=== PATIENT | female | born 1940 | race Hispanic/Latino ===

== ENCOUNTER 2018-05-22 21:03 | Emergency (ER) | payer MEDICARE, MEDICAID ==
[~2018-05-22] VITALS: Ht 165.1 cm; Wt 80.0 kg
[~2018-05-22 21:03] MED LIST: AMARYL2 MG PO; AMLODIPINE BESYL5 MG PO; AMOXICILLIN500 MG PO; ASPIRIN EC81 MG PO; ATENOL/CHLOR1 TA2 PO; ATENOLOL25 MG PO; B-COMPLEX1 CAP PO; CATAPRES0.1 MG PO; CATAPRESS PO; CIPROFLOXACIN500 M1 PO; CIPROFLOXACN500 MG PO; CLONAZEPAM1 MG PO; CLONIDINE0.1 MG PO; CYMBALTA30 MG PO; DICLOFENAC100 M1 PO; DONEPEZIL5 MG PO; DUONEB IN; GLIMEPIRIDE4 MG PO; GLUCOS1 PO; HYDROCODONE/ACE1 TA1 PO; INVOKANA100 MG PO; JANUMET PO; LISINOP/HCTZ1 TAB PO; MEDDOSEPAK PO; METRONIDAZOL500 MG PO; METRONIDAZOLE500 MG PO; MULTI VIT PO; MULTIVITAM10 OR; NEBULIZE2; NEURONTIN300 MG PO; NORVASC10 MG PO; NORVASC5 M1 PO; NOVOLIN 70/30 SC; NOVOLOG MIX SC; PANTOPRAZOLE SO40 M1 PO; PRAVASTATIN SOD20 MG PO; PRILOSEC20 MG PO; ROBITUSSIN AC10 ML PO; SIMVASTATIN40 MG PO; TRAMADOL HCL50 MG PO; TYLENOL EXT500 MG/RR PO; VALTAREN TOP; VICTOZA18 MG/3 ML SC; ZESTRIL40 MG PO; ZOFRAN ODT4 MG SL; [UNRECOGNIZED DRUG - OTHER] PO
[2018-05-22 21:54] LABS: IMMATURE GRANULOCYTES 0.4 % (0.0-1.0); MEAN CELL VOLUME 88.4 fL CALC (80.0-100.0); MEAN CORPUSCULAR HGB 30.9 pG CALC (26.0-32.0); MEAN CORPUSCULAR HGB CONC 34.9 g/L CALC (32.0-36.0); NEUT# 13.04 thou/uL (2.00-7.15); RED BLOOD COUNT 5.54 mill/uL (4.20-5.60); RED CELL DISTRI WIDTH 11.9 % (11.5-15.5)
[2018-05-22 21:57] LABS: HEMOGLOBIN 17.1 g/dl (12.0-16.0)
[2018-05-22 22:06] LABS: ALBUMIN 4.5 g/dL (3.2-5.0); ALKALINE PHOSPHATASE 82 u/l (38-126); AMYLASE 53 u/l (30-110); ANION GAP 17 (6-22 (CALC)); BILIRUBIN, TOTAL 0.7 mg/dL (0.0-1.4); BUN 18 mg/dL (8-23); BUN/CREATININE RATIO 27 (12-20 (CALC)); CARBON DIOXIDE 25 mmol/l (22-30); CHLORIDE 101 mmol/l (95-108); CREATININE 0.7 mg/dL (0.5-1.0); GFR > 60 ML/MIN (>=60 (CALC)); GFR FOR AFR.AMER. > 60 ML/MIN (>=60 (CALC)); LIPASE 75 u/l (23-300); POTASSIUM 3.8 mmol/l (3.5-5.1); SGOT/AST 17 u/l (9-36); SGPT/ALT 27 u/l (11-66); SODIUM 139 mmol/l (137-146)
[2018-05-22 23:37] LABS: URINE BILIRUBIN - DIPSTICK NEGATIVE (NEGATIVE); URINE BLOOD DIPSTICK NEGATIVE (NEGATIVE); URINE CLARITY CLEAR; URINE COLOR YELLOW; URINE GLUCOSE - DIPSTICK >=1000 mg/dL (NEGATIVE); URINE KETONE 15 mg/dL (NEGATIVE); URINE LEUK ESTERASE NEGATIVE (NEGATIVE); URINE NITRITE - DIPSTICK NEGATIVE (Negative); URINE PH 6.5 (4.5-8.0); URINE PROTEIN - DIPSTICK NEGATIVE (NEG-TRACE); URINE SPECIFIC GRAVITY <=1.005; URINE UROBILINOGEN - DIPSTICK 0.2 E.U./dL (0.2)
[2018-05-23 02:20] VITALS: BP 144/74
== END 2018-05-23 02:26 | disposition short-term general hospital (02) ==
LOC: ED 21:03
PROVIDERS: Family Medicine
DX: K35.80 Unspecified acute appendicitis (principal); R50.9 Fever, unspecified; R11.10 Vomiting, unspecified

== ENCOUNTER → 2018-08-24 | Outpatient (REF) | payer MEDICARE, MEDICAID ==
[2018-08-24 09:57] LABS: HEMATOCRIT 45.7 % (37.0-47.0); HEMOGLOBIN 15.2 g/dl (12.0-16.0); MEAN CORPUSCULAR HGB 30.6 pG CALC (26.0-32.0); MEAN CORPUSCULAR HGB CONC 33.3 g/L CALC (32.0-36.0); RED BLOOD COUNT 4.97 mill/uL (4.20-5.60)
[2018-08-24 10:11] LABS: URINE BILIRUBIN - DIPSTICK NEGATIVE (NEGATIVE); URINE BLOOD DIPSTICK NEGATIVE (NEGATIVE); URINE COLOR YELLOW; URINE GLUCOSE - DIPSTICK >=1000 mg/dL (NEGATIVE); URINE KETONE NEGATIVE (NEGATIVE); URINE LEUK ESTERASE NEGATIVE (NEGATIVE); URINE NITRITE - DIPSTICK NEGATIVE (Negative); URINE PROTEIN - DIPSTICK NEGATIVE (NEG-TRACE); URINE UROBILINOGEN - DIPSTICK 0.2 E.U./dL (0.2)
[2018-08-24 10:12] LABS: URINE CLARITY CLEAR
[2018-08-24 10:18] LABS: ALBUMIN 3.9 g/dL (3.2-5.0); ALKALINE PHOSPHATASE 67 u/l (38-126); ANION GAP 15 (6-22 (CALC)); BILIRUBIN, TOTAL 0.6 mg/dL (0.0-1.4); BUN 20 mg/dL (8-23); BUN/CREATININE RATIO 27 (12-20 (CALC)); CARBON DIOXIDE 26 mmol/l (22-30); CHLORIDE 105 mmol/l (95-108); CREATININE 0.7 mg/dL (0.5-1.0); GFR > 60 ML/MIN (>=60 (CALC)); GFR FOR AFR.AMER. > 60 ML/MIN (>=60 (CALC)); POTASSIUM 4.4 mmol/l (3.5-5.1); SGOT/AST 17 u/l (9-36); SODIUM 141 mmol/l (137-146)
[2018-08-24 10:49] LABS: TSH, 3RD GENERATION 1.39 uIU/mL (0.47 - 4.68)
== END | disposition home or self-care (01) ==
LOC: CT 08:47
PROVIDERS: Nurse Practitioner Adult Health; ATTEND Nurse Practitioner Family
DX: R10.9 Unspecified abdominal pain (principal); E11.40 Type 2 diabetes mellitus with diabetic neuropathy, unspecified; E78.49 Other hyperlipidemia; R10.30 Lower abdominal pain, unspecified; Z90.49 Acquired absence of other specified parts of digestive tract; K57.30 Diverticulosis of large intestine without perforation or abscess without bleeding

== ENCOUNTER 2021-10-16 10:27 | Emergency (ER) | payer MEDICARE, MEDICAID ==
[~2021-10-16] VITALS: Ht 165.1 cm; Wt 81.0 kg
[~2021-10-16 10:27] MED LIST changes: +GABAPENTIN100 MG PO; +JARDIANCE25 MG PO; +MECLIZINE25 MG PO; +MELOXICAM7.5 MG PO; +METOPROL TAR25 MG PO; +MONTELUKAST SOD10 MG PO
[2021-10-16 10:58] LABS: URINE BILIRUBIN - DIPSTICK NEGATIVE (NEGATIVE); URINE BLOOD DIPSTICK NEGATIVE (NEGATIVE); URINE COLOR YELLOW; URINE GLUCOSE - DIPSTICK >=1000 mg/dL (NEGATIVE); URINE KETONE NEGATIVE (NEGATIVE); URINE LEUK ESTERASE NEGATIVE (NEGATIVE); URINE PROTEIN - DIPSTICK NEGATIVE (NEG-TRACE); URINE SPECIFIC GRAVITY <=1.005; URINE UROBILINOGEN - DIPSTICK 0.2 E.U./dL (0.2)
[2021-10-16 10:59] LABS: HEMATOCRIT 45.7 % (37.0-47.0); HEMOGLOBIN 14.8 g/dl (12.0-16.0); IMMATURE GRANULOCYTES 0.3 % (0.0-5.0); MEAN CELL VOLUME 94.6 fL CALC (80.0-100.0); MEAN CORPUSCULAR HGB 30.6 pG CALC (26.0-32.0); MEAN CORPUSCULAR HGB CONC 32.4 g/dL CAL (32.0-36.0); NEUT# 6.23 thou/uL (2.00-7.15); RED BLOOD COUNT 4.83 mill/uL (4.20-5.60); RED CELL DISTRI WIDTH 13.2 % (11.5-15.5)
[2021-10-16 11:00] LABS: URINE NITRITE - DIPSTICK POSITIVE (Negative)
[2021-10-16 11:01] LABS: URINE BACTERIA FEW hpf; URINE EPITHELIAL CELLS FEW EPI/hpf (0-FEW)
[2021-10-16 11:14] LABS: ALBUMIN 3.6 g/dL (3.2-5.0); ALKALINE PHOSPHATASE 58 u/l (38-126); ANION GAP 11 (6-22 (CALC)); BILIRUBIN, TOTAL 0.7 mg/dL (0.0-1.4); BUN 25 mg/dL (8-23); BUN/CREATININE RATIO 27 (12-20 (CALC)); CARBON DIOXIDE 27 mmol/l (22-30); CHLORIDE 105 mmol/l (95-108); CREATININE 0.9 mg/dL (0.5-1.0); GFR 60 ML/MIN (>=60 (CALC)); GFR FOR AFR.AMER. > 60 ML/MIN (>=60 (CALC)); LIPASE 53 u/l (23-300); SGOT/AST 24 u/l (9-36); SODIUM 138 mmol/l (137-146); TOTAL PROTEIN 7.3 g/dL (6.3-8.2)
[2021-10-16] MEDS ORDERED: METFORMIN500 M2 PO (11:17)
[2021-10-16 14:38] VITALS: BP 148/70
[2021-10-16] MEDS ORDERED: HYOSCYAMINE0.125 M3 PO (14:38)
[2021-10-16] MEDS ORDERED: NITROFURANTN100 M2 PO (14:38)
[2021-10-16] MEDS ORDERED: ZOFRAN4 M1 PO (14:38)
[2021-10-16] MEDS ORDERED: CITRATE OF MEGNESIA PO (14:38)
== END 2021-10-16 15:00 | disposition home or self-care (01) ==
LOC: ED 10:27
PROVIDERS: Family Medicine
DX: R10.84 Generalized abdominal pain (principal); N39.0 Urinary tract infection, site not specified; E11.9 Type 2 diabetes mellitus without complications; I10 Essential (primary) hypertension; B96.20 Unspecified Escherichia coli [E. coli] as the cause of diseases classified elsewhere; Z16.12 Extended spectrum beta lactamase (ESBL) resistance; Z95.0 Presence of cardiac pacemaker; Z90.49 Acquired absence of other specified parts of digestive tract; Z79.4 Long term (current) use of insulin; Z79.84 Long term (current) use of oral hypoglycemic drugs
CPT/HCPCS: Q9967

== ENCOUNTER 2022-07-16 15:54 | Emergency (ER) | payer MEDICARE, MEDICAID ==
[~2022-07-16] VITALS: Ht 165.1 cm; Wt 74.6 kg
[2022-07-16] VITALS (7 sets, daily range): BP systolic 128–145; BP diastolic 58–69
[~2022-07-16 15:54] MED LIST changes: +CITRATE OF MEGNESIA PO; +HYOSCYAMINE0.125 M3 PO; +METFORMIN500 M2 PO; +NITROFURANTN100 M2 PO; +ZOFRAN4 M1 PO
[2022-07-16 16:17] LABS: HEMATOCRIT 46.7 % (37.0-47.0); HEMOGLOBIN 15.3 g/dl (12.0-16.0); IMMATURE GRANULOCYTES 0.2 % (0.0-5.0); MEAN CELL VOLUME 92.5 fL CALC (80.0-100.0); MEAN CORPUSCULAR HGB 30.3 pG CALC (26.0-32.0); MEAN CORPUSCULAR HGB CONC 32.8 g/dL CAL (32.0-36.0); NEUT# 7.95 thou/uL (2.00-7.15); RED BLOOD COUNT 5.05 mill/uL (4.20-5.60); RED CELL DISTRI WIDTH 12.9 % (11.5-15.5)
[2022-07-16 16:25] LABS: GFR FOR AFR.AMER. > 60 ML/MIN (>=60 (CALC)); GFR OTHER RACES > 60 ML/MIN (>=60 (CALC))
[2022-07-16] MEDS ORDERED: ALPRAZOLAM0.25 MG PO (16:32)
[2022-07-16] MEDS ORDERED: NORVASC5 M1 PO (16:33)
[2022-07-16 16:34] LABS: ALKALINE PHOSPHATASE 67 u/l (38-126); ANION GAP 12 (6-22 (CALC)); BUN 17 mg/dL (8-23); BUN/CREATININE RATIO 25 (12-20 (CALC)); CARBON DIOXIDE 22 mmol/l (22-30); CHLORIDE 109 mmol/l (95-108); CREATININE 0.7 mg/dL (0.5-1.0); GFR FOR AFR.AMER. > 60 ML/MIN (>=60 (CALC)); GFR OTHER RACES > 60 ML/MIN (>=60 (CALC)); LIPASE 39 u/l (23-300); POTASSIUM 3.7 mmol/l (3.5-5.1); SGOT/AST 21 u/l (9-36); SODIUM 140 mmol/l (137-146); TOTAL PROTEIN 7.6 g/dL (6.3-8.2)
[2022-07-16] MEDS ORDERED: BUPROPION150 M3 PO (16:34)
[2022-07-16] MEDS ORDERED: ELIQUIS5 MG PO (16:34)
[2022-07-16] MEDS ORDERED: FLUOXETINE10 M2 PO (16:35)
[2022-07-16] MEDS ORDERED: ALL DAY10 MG PO (16:35)
[2022-07-16] MEDS ORDERED: LISINOPRIL10 MG PO (16:36)
[2022-07-16] MEDS ORDERED: METOPROL TAR25 MG PO (16:36)
[2022-07-16 16:37] LABS: BILIRUBIN, TOTAL 0.8 mg/dL (0.0-1.4)
[2022-07-16] MEDS ORDERED: ASMANEX HFA50 MCG (16:37)
[2022-07-16 17:31] LABS: URINE BILIRUBIN - DIPSTICK NEGATIVE (NEGATIVE); URINE BLOOD DIPSTICK TRACE-INTACT (NEGATIVE); URINE COLOR YELLOW; URINE GLUCOSE - DIPSTICK >=1000 mg/dL (NEGATIVE); URINE KETONE NEGATIVE (NEGATIVE); URINE LEUK ESTERASE TRACE (NEGATIVE); URINE PH 5.5 (4.5-8.0); URINE PROTEIN - DIPSTICK NEGATIVE (NEG-TRACE); URINE UROBILINOGEN - DIPSTICK 0.2 E.U./dL (0.2)
[2022-07-16 17:32] LABS: URINE NITRITE - DIPSTICK POSITIVE (Negative)
[2022-07-16 17:40] LABS: URINE BACTERIA MODERATE hpf; URINE SQUAMOUS EPITHELIAL CELL FEW EPI/hpf (0-FEW)
[2022-07-16] MEDS ORDERED: NITROFURANTN100 M2 PO (17:57)
== END 2022-07-16 18:20 | disposition home or self-care (01) ==
LOC: ED 15:54
PROVIDERS: Family Medicine
DX: R10.13 Epigastric pain (principal); N39.0 Urinary tract infection, site not specified; I10 Essential (primary) hypertension; E11.9 Type 2 diabetes mellitus without complications; I48.91 Unspecified atrial fibrillation; E78.5 Hyperlipidemia, unspecified; K21.9 Gastro-esophageal reflux disease without esophagitis; F03.90 Unspecified dementia, unspecified severity, without behavioral disturbance, psychotic disturbance, mood disturbance, and anxiety; I25.2 Old myocardial infarction; Z87.11 Personal history of peptic ulcer disease; Z95.0 Presence of cardiac pacemaker; Z86.73 Personal history of transient ischemic attack (TIA), and cerebral infarction without residual deficits; Z79.84 Long term (current) use of oral hypoglycemic drugs; B96.20 Unspecified Escherichia coli [E. coli] as the cause of diseases classified elsewhere; Z16.12 Extended spectrum beta lactamase (ESBL) resistance
CPT/HCPCS: Q9967

== ENCOUNTER 2023-01-28 17:36 | Emergency (ER) | payer MEDICARE, MEDICAID ==
[~2023-01-28] VITALS: Ht 165.1 cm; Wt 68.0 kg
[~2023-01-28 17:36] MED LIST changes: +ALL DAY10 MG PO; +ALPRAZOLAM0.25 MG PO; +ASMANEX HFA50 MCG; +BUPROPION150 M3 PO; +ELIQUIS5 MG PO; +FLUOXETINE10 M2 PO; +LISINOPRIL10 MG PO
[2023-01-28 18:16] LABS: BASO% 0.2 % (0-3); EOS% 2.1 % (0-8); HEMATOCRIT 45.5 % (37.0-47.0); HEMOGLOBIN 14.7 g/dl (12.0-16.0); IMMATURE GRANULOCYTES 0.3 % (0.0-5.0); LYMPH% 41.1 % (15-41); MEAN CELL VOLUME 96.8 fL CALC (80.0-100.0); MEAN CORPUSCULAR HGB 31.3 pG CALC (26.0-32.0); MEAN CORPUSCULAR HGB CONC 32.3 g/dL CAL (32.0-36.0); MONO% 11.6 % (2-13); NEUT# 3.87 thou/uL (2.00-7.15); NEUT% 44.7 % (42-76); RED BLOOD COUNT 4.7 mill/uL (4.20-5.60); RED CELL DISTRI WIDTH 12.2 % (11.5-15.5)
[2023-01-28 18:24] LABS: ALBUMIN 3.9 g/dL (3.2-5.0); ALKALINE PHOSPHATASE 48 u/l (38-126); ANION GAP 12 (6-22 (CALC)); BUN 22 mg/dL (8-23); BUN/CREATININE RATIO 28 (12-20 (CALC)); CARBON DIOXIDE 26 mmol/l (22-30); CHLORIDE 103 mmol/l (95-108); CREATININE 0.8 mg/dL (0.5-1.0); GFR FOR AFR.AMER. > 60 ML/MIN (>=60 (CALC)); GFR OTHER RACES > 60 ML/MIN (>=60 (CALC)); POTASSIUM 4.7 mmol/l (3.5-5.1); SGOT/AST 25 u/l (9-36); SODIUM 135 mmol/l (137-146); TOTAL PROTEIN 7.1 g/dL (6.3-8.2)
[2023-01-28 18:28] LABS: BILIRUBIN, TOTAL 0.2 mg/dL (0.02-1.3)
[2023-01-28] MEDS ORDERED: NOVOLIN 70/30 INNLT SC (18:47)
[2023-01-28] MEDS ORDERED: NOVOLIN 70/30 F1 INJ SC (18:47)
[2023-01-28] MEDS ORDERED: FLUTICASON50 MCG/ACT (18:50)
[2023-01-28] MEDS ORDERED: DIVALPROEX SOD250 MG PO (18:52)
[2023-01-28] MEDS ORDERED: SEROQUEL25 MG PO (18:53)
[2023-01-28 21:31] VITALS: BP 161/72
== END 2023-01-28 21:10 | disposition left against medical advice (07) ==
LOC: ED 17:36
PROVIDERS: Family Medicine
DX: I63.512 Cerebral infarction due to unspecified occlusion or stenosis of left middle cerebral artery (principal); R47.81 Slurred speech; R29.701 NIHSS score 1; R29.810 Facial weakness; I10 Essential (primary) hypertension; E11.9 Type 2 diabetes mellitus without complications; F01.50 Vascular dementia, unspecified severity, without behavioral disturbance, psychotic disturbance, mood disturbance, and anxiety; H54.62 Unqualified visual loss, left eye, normal vision right eye; I25.2 Old myocardial infarction; Z53.29 Procedure and treatment not carried out because of patient's decision for other reasons; Z86.73 Personal history of transient ischemic attack (TIA), and cerebral infarction without residual deficits; Z79.84 Long term (current) use of oral hypoglycemic drugs; Z79.4 Long term (current) use of insulin; Z79.01 Long term (current) use of anticoagulants; Z95.0 Presence of cardiac pacemaker
CPT/HCPCS: Q9967

== ENCOUNTER 2023-07-02 19:02 | Emergency (ER) | payer MEDICARE, MEDICAID ==
[~2023-07-02] VITALS: Ht 165.1 cm; Wt 66.8 kg
[~2023-07-02 19:02] MED LIST changes: +DIVALPROEX SOD250 MG PO; +FLUTICASON50 MCG/ACT; +NOVOLIN 70/30 F1 INJ SC; +NOVOLIN 70/30 INNLT SC; +SEROQUEL25 MG PO
[2023-07-02 20:12] LABS: BASO% 0.4 % (0-3); EOS% 1.8 % (0-8); HEMATOCRIT 42.9 % (37.0-47.0); HEMOGLOBIN 14.5 g/dl (12.0-16.0); IMMATURE GRANULOCYTES 0.1 % (0.0-5.0); LYMPH% 42.8 % (15-41); MEAN CELL VOLUME 95.1 fL CALC (80.0-100.0); MEAN CORPUSCULAR HGB 32.2 pG CALC (26.0-32.0); MEAN CORPUSCULAR HGB CONC 33.8 g/dL CAL (32.0-36.0); MONO% 11.2 % (2-13); NEUT# 3.1 thou/uL (2.00-7.15); NEUT% 43.7 % (42-76); RED BLOOD COUNT 4.51 mill/uL (4.20-5.60); RED CELL DISTRI WIDTH 12.8 % (11.5-15.5)
[2023-07-02 20:26] LABS: ALKALINE PHOSPHATASE 47 u/l (38-126); ANION GAP 14 (6-22 (CALC)); BUN 20 mg/dL (8-23); BUN/CREATININE RATIO 30 (12-20 (CALC)); CARBON DIOXIDE 23 mmol/l (22-30); CHLORIDE 105 mmol/l (95-108); CREATININE 0.6 mg/dL (0.5-1.0); GFR FOR AFR.AMER. > 60 ML/MIN (>=60 (CALC)); GFR OTHER RACES > 60 ML/MIN (>=60 (CALC)); POTASSIUM 4.3 mmol/l (3.5-5.1); SGOT/AST 27 u/l (9-36); SODIUM 138 mmol/l (137-146); TOTAL PROTEIN 7.1 g/dL (6.3-8.2)
[2023-07-02 20:27] LABS: BILIRUBIN, TOTAL 0.5 mg/dL (0.02-1.3)
[2023-07-02] MEDS ORDERED: FIORICET PO (21:50)
[2023-07-02 21:59] VITALS: BP 175/70
== END 2023-07-02 23:15 | disposition home or self-care (01) ==
LOC: ED 19:02
PROVIDERS: Emergency Medicine
DX: R51.9 Headache, unspecified (principal); I10 Essential (primary) hypertension; E11.9 Type 2 diabetes mellitus without complications; I25.2 Old myocardial infarction; F03.90 Unspecified dementia, unspecified severity, without behavioral disturbance, psychotic disturbance, mood disturbance, and anxiety; Z86.73 Personal history of transient ischemic attack (TIA), and cerebral infarction without residual deficits; Z79.4 Long term (current) use of insulin; Z20.822 Contact with and (suspected) exposure to COVID-19

== ENCOUNTER 2024-08-13 12:47 | Emergency (ER) | payer MEDICARE, MEDICAID ==
[2024-08-13] VITALS (12 sets, daily range): BP systolic 153–178; BP diastolic 72–91
[~2024-08-13] VITALS: Ht 162.6 cm; Wt 72.1 kg
[~2024-08-13 12:47] MED LIST changes: +BUSPAR10 MG PO; +CIPROFLOXACN250 M1 PO; +FIORICET PO; +FLUOXETINE HYDR20 MG PO; -FLUOXETINE10 M2 PO; +MUCINEX600 MG PO; +PAXLOVID PO; +PROTONIX40 M2 PO
[2024-08-13] MEDS ORDERED: traMADol HCL 50 MG/TAB PO ONE (13:05)
[2024-08-13] MEDS ORDERED: PERCOCET 5/325M1 TAB PO (14:58)
== END 2024-08-13 15:27 | disposition home or self-care (01) ==
LOC: ED 12:47
DX: S22.31XA Fracture of one rib, right side, initial encounter for closed fracture (principal); I10 Essential (primary) hypertension; E11.9 Type 2 diabetes mellitus without complications; F03.90 Unspecified dementia, unspecified severity, without behavioral disturbance, psychotic disturbance, mood disturbance, and anxiety; H54.7 Unspecified visual loss; W17.89XA Other fall from one level to another, initial encounter; Y93.E1 Activity, personal bathing and showering; Y92.002 Bathroom of unspecified non-institutional (private) residence as the place of occurrence of the external cause; Z79.4 Long term (current) use of insulin; Z79.84 Long term (current) use of oral hypoglycemic drugs; Z95.0 Presence of cardiac pacemaker

== ENCOUNTER 2024-11-30 10:01 | Observation (INO) | payer MEDICARE, MEDICAID ==
[2024-11-30] VITALS (33 sets, daily range): BP systolic 147–196; BP diastolic 59–155
[~2024-11-30] VITALS: Ht 162.6 cm; Wt 69.0 kg
[~2024-11-30 10:01] MED LIST changes: +PERCOCET 5/325M1 TAB PO
[2024-11-30] MEDS ORDERED: SODIUM CHLORIDE 0.9% 1,000 ML IV ONE ×2 (10:25→11:20)
[2024-11-30 10:38] LABS: BASO% 0.5 % (0-3); EOS% 1.6 % (0-8); HEMATOCRIT 47.7 % (37.0-47.0); HEMOGLOBIN 15.9 g/dl (12.0-16.0); IMMATURE GRANULOCYTES 0.1 % (0.0-5.0); LYMPH% 31.3 % (15-41); MEAN CELL VOLUME 95.4 fL CALC (80.0-100.0); MEAN CORPUSCULAR HGB 31.8 pG CALC (26.0-32.0); MEAN CORPUSCULAR HGB CONC 33.3 g/dL CAL (32.0-36.0); MONO% 5.8 % (2-13); NEUT# 5.33 thou/uL (2.00-7.15); NEUT% 60.7 % (42-76); RED CELL DISTRI WIDTH 12.4 % (11.5-15.5)
[2024-11-30 10:44] LABS: URINE BILIRUBIN - DIPSTICK Negative (NEGATIVE); URINE BLOOD DIPSTICK Negative (NEGATIVE); URINE GLUCOSE - DIPSTICK 100 mg/dL (NEGATIVE); URINE KETONE 15 mg/dL (NEGATIVE); URINE LEUK ESTERASE Negative (NEGATIVE); URINE NITRITE - DIPSTICK Negative (Negative); URINE PROTEIN - DIPSTICK 30 mg/dL (NEG-TRACE)
[2024-11-30 10:55] LABS: URINE COLOR Yellow
[2024-11-30] MEDS ORDERED: BUPROPION HCL150 MG PO (10:59)
[2024-11-30 11:02] LABS: URINE RBC 0-2 RBC/hpf (0-5); URINE WBC 0-2 WBC/hpf (0-5)
[2024-11-30 11:07] LABS: ALBUMIN 4.7 g/dL (3.2-5.0); ALKALINE PHOSPHATASE 87 u/l (38-126); ANION GAP 17 (6-22 (CALC)); BILIRUBIN, TOTAL 0.7 mg/dL (0.02-1.3); BUN 19 mg/dL (8-23); BUN/CREATININE RATIO 29 (12-20 (CALC)); CARBON DIOXIDE 25 mmol/l (22-30); CHLORIDE 103 mmol/l (95-108); CREATININE 0.6 mg/dL (0.5-1.0); ESTIMATED GFR 89 ML/MIN (>=90 (CALC)); POTASSIUM 3.8 mmol/l (3.5-5.1); SGOT/AST 30 u/l (9-36); SODIUM 141 mmol/l (137-146); TOTAL PROTEIN 8.5 g/dL (6.3-8.2)
[2024-11-30 11:07] LABS: URINE YEAST RARE hpf
[2024-11-30 11:08] LABS: URINE HYALINE CAST FEW lpf (NONE-RARE)
[2024-11-30 11:33] LABS: INTERNATIONAL NORMALIZED RATIO 1.1 RATIO (0.7-1.3)
[2024-11-30 11:36] LABS: PROTHROMBIN TIME 11.6 SECONDS (9.0-12.5)
[2024-11-30] MEDS ORDERED: OS-CAL 500500 M1 PO (11:42)
[2024-11-30] MEDS ORDERED: PIPERACILLIN Sodium-Tazobactam 3.375 GM in SODIUM CHLORIDE 0.9% 100 ML IV ONE (13:05)
[2024-11-30] MEDS ORDERED: LORazepam 2 MG/ML IV ONE (13:20)
[2024-11-30] MEDS ORDERED: HALOPERIDOL LACTATE 5 MG/ML SDV IV ONE (14:20)
[2024-11-30] MEDS ORDERED: DEXTROSE 5% / 0.9% NACL 1,000 ML IV PRN (18:35)
[2024-11-30] MEDS ORDERED: hydrALAZINE HCL 20 MG/ML VIAL(1 ML) IV SCH (18:40)
[2024-11-30] MEDS ORDERED: DEXTROSE 5% w/NACL 0.45 1,000 ML IV PRN (19:45)
[2024-11-30] MEDS ORDERED: ACETAMINOPHEN 325 MG/TAB PO PRN (20:05)
[2024-11-30] MEDS ORDERED: MAGNESIUM HYDROXIDE 30 ML UDC PO PRN (20:05)
[2024-11-30] MEDS ORDERED: SODIUM CHLORIDE 0.9% 1,000 ML IV PRN (20:05)
[2024-11-30] MEDS ORDERED: DEXTROSE 250 ML IV PRN (20:15)
[2024-11-30] MEDS ORDERED: ALPRAZolam 0.25 MG PO PRN (20:15)
[2024-11-30] MEDS ORDERED: VALPROATE SODIUM 250 MG/5 ML SYRUP PO SCH (21:00)
[2024-11-30] MEDS ORDERED: INSULIN LISPRO 100 UNITS/ML ML SC SCH (21:00)
[2024-11-30] MEDS ORDERED: APIXABAN BASE 5 MG TAB PO SCH (21:00)
[2024-11-30] MEDS ORDERED: QUEtiapine FUMERATE 25 MG/TAB PO SCH (21:00)
[2024-12-01] VITALS (7 sets, daily range): BP systolic 152–178; BP diastolic 63–82
[2024-12-01] MEDS ORDERED: FLUoxetine HCL 10 MG/CAP PO SCH (09:00)
[2024-12-01] MEDS ORDERED: amLODIPine BESYLATE 5 MG/TAB PO SCH (09:00)
[2024-12-01] MEDS ORDERED: buPROPion HCL 150 MG TAB SR PO SCH (09:00)
[2024-12-01] MEDS ORDERED: PANTOPRAZOLE SODIUM Sesquihydr 40 MG/TAB PO SCH (09:00)
[2024-12-02 04:04] VITALS: BP 159/77
[2024-12-02 05:49] LABS: BASO% 0.5 % (0-3); EOS% 3.4 % (0-8); IMMATURE GRANULOCYTES 0.1 % (0.0-5.0); MEAN CELL VOLUME 97.1 fL CALC (80.0-100.0); MEAN CORPUSCULAR HGB 32.8 pG CALC (26.0-32.0); MEAN CORPUSCULAR HGB CONC 33.7 g/dL CAL (32.0-36.0); MONO% 11.7 % (2-13); NEUT# 3.69 thou/uL (2.00-7.15); NEUT% 44.3 % (42-76); RED BLOOD COUNT 4.21 mill/uL (4.20-5.60); RED CELL DISTRI WIDTH 12.8 % (11.5-15.5)
[2024-12-02 05:54] LABS: HEMATOCRIT 40.9 % (37.0-47.0); HEMOGLOBIN 13.8 g/dl (12.0-16.0)
[2024-12-02 06:00] LABS: BILIRUBIN, TOTAL 0.9 mg/dL (0.02-1.3); CREATININE 0.7 mg/dL (0.5-1.0); MAGNESIUM 1.7 mg/dL (1.6-2.3)
[2024-12-02 06:01] LABS: TOTAL PROTEIN 5.9 g/dL (6.3-8.2)
[2024-12-02 06:02] LABS: ALBUMIN 3.1 g/dL (3.2-5.0)
[2024-12-02 06:44] VITALS: BP 181/65
[2024-12-02 08:55] VITALS: BP 181/65
[2024-12-02] MEDS ORDERED: amLODIPine BESYLATE 5 MG/TAB PO SCH (09:00)
[2024-12-02] MEDS ORDERED: RAMELTEON8 MG PO (13:51)
== END 2024-12-02 13:50 | disposition home or self-care (01) ==
LOC: ED 10:01 → ED-I 14:15 → ED 16:26 → MS2 16:27
PROVIDERS: Family Medicine; Nurse Practitioner Family; ADMIT Internal Medicine; ATTEND Internal Medicine
DX: R41.82 Altered mental status, unspecified (principal); R53.83 Other fatigue; G30.9 Alzheimer's disease, unspecified; F02.80 Dementia in other diseases classified elsewhere, unspecified severity, without behavioral disturbance, psychotic disturbance, mood disturbance, and anxiety; I10 Essential (primary) hypertension; E11.9 Type 2 diabetes mellitus without complications; I48.91 Unspecified atrial fibrillation; K21.9 Gastro-esophageal reflux disease without esophagitis; Z95.0 Presence of cardiac pacemaker; Z79.02 Long term (current) use of antithrombotics/antiplatelets; Z79.84 Long term (current) use of oral hypoglycemic drugs; Z79.4 Long term (current) use of insulin; Z91.81 History of falling; Z86.73 Personal history of transient ischemic attack (TIA), and cerebral infarction without residual deficits; Z20.822 Contact with and (suspected) exposure to COVID-19
CPT/HCPCS: G0378; J0360; J1630; J1815; J2060; J2543; Q9967

== ENCOUNTER 2024-12-31 19:12 | Emergency (ER) | payer MEDICARE, MEDICAID ==
[2024-12-31] VITALS (17 sets, daily range): BP systolic 119–154; BP diastolic 55–69
[~2024-12-31] VITALS: Ht 162.6 cm; Wt 59.0 kg
[~2024-12-31 19:12] MED LIST changes: +BUPROPION HCL150 MG PO; +OS-CAL 500500 M1 PO; +RAMELTEON8 MG PO
[2024-12-31] MEDS ORDERED: SODIUM CHLORIDE 0.9% 1,000 ML IV ONE (19:25)
[2024-12-31 19:52] LABS: BASO% 0.2 % (0-3); EOS% 1.9 % (0-8); HEMATOCRIT 38.1 % (37.0-47.0); HEMOGLOBIN 12.6 g/dl (12.0-16.0); IMMATURE GRANULOCYTES 0.3 % (0.0-5.0); LYMPH% 27.8 % (15-41); MEAN CELL VOLUME 98.2 fL CALC (80.0-100.0); MEAN CORPUSCULAR HGB 32.5 pG CALC (26.0-32.0); MEAN CORPUSCULAR HGB CONC 33.1 g/dL CAL (32.0-36.0); MONO% 12.7 % (2-13); NEUT# 7.22 thou/uL (2.00-7.15); NEUT% 57.1 % (42-76); RED BLOOD COUNT 3.88 mill/uL (4.20-5.60); RED CELL DISTRI WIDTH 12.5 % (11.5-15.5)
[2024-12-31 20:07] LABS: CREATININE 0.8 mg/dL (0.5-1.0); POTASSIUM 4.4 mmol/l (3.5-5.1)
[2024-12-31 20:41] LABS: URINE BLOOD DIPSTICK Negative (NEGATIVE); URINE GLUCOSE - DIPSTICK 500 mg/dL (NEGATIVE); URINE KETONE Trace mg/dL (NEGATIVE); URINE LEUK ESTERASE Trace (NEGATIVE); URINE NITRITE - DIPSTICK Negative (Negative); URINE PH 5.5 (4.5-8.0); URINE PROTEIN - DIPSTICK 100 mg/dL (NEG-TRACE); URINE SPECIFIC GRAVITY 1.025; URINE UROBILINOGEN - DIPSTICK 0.2 E.U./dL (0.2)
[2024-12-31 20:42] LABS: URINE COLOR Dark yellow
[2024-12-31 20:48] LABS: URINE RBC 0-2 RBC/hpf (0-5); URINE WBC 0-2 WBC/hpf (0-5)
[2024-12-31 20:49] LABS: URINE BACTERIA FEW hpf; URINE HYALINE CAST FEW lpf (NONE-RARE)
[2024-12-31] MEDS ORDERED: Levofloxacin 750 mg Premix 150 ML IV ONE (21:55)
[2024-12-31] MEDS ORDERED: LEVOFLOXACIN750 MG PO (21:56)
[2024-12-31] MEDS ORDERED: levoFLOXacin 500 MG TAB PO ONE (23:00)
[2024-12-31] MEDS ORDERED: HYDROcodone 5 MG/Acetaminophen 325 MG/COMBO PO ONE (23:00)
== END 2024-12-31 23:12 | disposition home or self-care (01) ==
LOC: ED 19:12
PROVIDERS: Family Medicine
DX: J18.9 Pneumonia, unspecified organism (principal); F03.911 Unspecified dementia, unspecified severity, with agitation; Z51.5 Encounter for palliative care; Z66 Do not resuscitate; Z95.810 Presence of automatic (implantable) cardiac defibrillator